=== PATIENT | female | born 1975 | race Caucasian/White ===

== ENCOUNTER 2022-04-28 11:26 | Emergency (ER) | payer BC, SELFPAY ==
--- NOTE | ~2022-04-28 | XR_ITS ---
EXAMINATION: XR chest 2V DATE: 04/28/2022 13:29 INDICATION: Cough and shortness of breath TECHNIQUE: PA and lateral views of the chest are obtained. COMPARISON: None available FINDINGS: The lungs are free of acute opacities. No pleural effusion or pneumothorax. The cardiomedia stinal silhouette is normal. The visualized bones and soft tissues are unremarkable. Bilateral breast implants are noted. IMPRESSION: 1. No acute cardiopulmonary abnormality. Reviewed, dictated and finalized at location B. [employer]
[2022-04-28 11:46] VITALS: BP 135/87; PULSE 68; RESP 18; TEMP 37.2; O2SAT 98
[2022-04-28 12:32] LABS: Influenza A QL RT-PCR Positive (Negative); Influenza B QL RT-PCR Negative (Negative); SARS-CoV-2 RNA PCR Negative
--- NOTE | 2022-04-28 12:46 | ED.URI ---
HPI - URI/Sore Throat General Chief Complaint: Upper Respiratory Infection Stated Complaint: URI Time Seen by Provider: 04/28/22 12:26 History of Present Illness HPI Narrative: Patient is a 46-year-old female with a history of lupus presenting with upper respiratory infection symptoms. Patient states for the last 5 days she has had muscle aches, generalized weakness, cough. States that her granddaughter recently tested positive for influenza A. States that she is concerned that she has pneumonia. Denies fevers, headache, numbness or weakness, chest pain, abdominal pain, vomiting, diarrhea, leg swelling. Reports decreased appetite but states that she is able to keep things down. Related Data Home Medications Medication Instructions Recorded Confirmed Imuran 04/28/22 hydroxychloroquine 200 mg tablet mg PO 04/28/22 Allergies Allergy/AdvReac Type Severity Reaction Status Date / Time No Known Allergies Allergy Unverified 04/28/22 11:49 Review of Systems Review of Systems: All systems reviewed & are unremarkable except as noted in HPI and below Exam Narrative: GENERAL: Appears uncomfortable but is nontoxic and in no acute distress HEAD: Normocephalic, atraumatic. EYES: PERRLA and EOMI. ENT: + Nasal congestion. Mucous membranes moist. NECK: Supple. CHEST: Clear to auscultation. No respiratory distress. HEART: Regular rate and rhythm. No murmur heard. Normal peripheral pulses. ABDOMEN: Soft, nontender, nondistended, normal active bowel sounds. EXTREMITIES: Normal range of motion. No edema. SKIN: Warm, dry, no rash. NEURO: No focal deficits. Alert and oriented x3. PSYCH: Normal mood and affect. Course Vital Signs Vital signs: Vital Signs Temperature 98.9 F 04/28/22 11:46 Pulse Rate 68 04/28/22 11:46 Respiratory Rate 18 04/28/22 11:46 Blood Pressure 135/87 04/28/22 11:46 Pulse Oximetry 98 04/28/22 11:46 Temperature 98.9 F 04/28/22 11:46 Pulse Rate 68 04/28/22 11:46 Respiratory Rate 18 04/28/22 11:46 Blood Pressure 135/87 04/28/22 11:46 Pulse Oximetry 98 04/28/22 11:46 Oxygen Delivery Room Air 04/28/22 12:08 MDM - URI/Sore Throat MDM Narrative Medical decision making narrative: Patient is a 46-year-old female presenting with URI symptoms. Vitals within normal limits. Exam remarkable for the above. Patient is positive for influenza A. Chest x-ray shows no acute abnormalities. Discussed appropriate supportive care with the patient. Will prescribe Tessalon Perles. Advised PCP follow-up. Appropriate return precautions given. Patient discharged in stable condition. Lab Data Labs: Lab Results 04/28/22 Range/Units 11:51 Influenza A (RT-PCR) Positive (Negative) Influenza B (RT-PCR) Negative (Negative) SARS-CoV-2 RNA (RT-PCR) Negative Critical Care Time Critical Care Time Critical Care Time: No Discharge Plan Discharge Clinical Impression: Influenza Patient Disposition: Home, Self-Care Condition: Stable Instructions: Antibiotic Form, Influenza (ED) Additional Instructions: Please use Tylenol and ibuprofen for symptomatic control. You may use the prescribed medication for cough. Please follow-up with your primary care provider. If you develop chest pain, shortness of breath, lightheadedness, or other concerning symptoms arise, please return to the ER. Prescriptions: New benzonatate 100 mg capsule 100 mg PO TID PRN (Reason: cough) Qty: 30 0RF No Action hydroxychloroquine 200 mg tablet PO Imuran Follow-up/Referrals: London Justin MD [Primary Care Provider] -
[2022-04-28] MEDS: ACETAMINOPHEN 500 MG TABLET 1000 MG PO (13:46)
[2022-04-28] MEDS: IBUPROFEN 400 MG TABLET 800 MG PO (13:46)
== END 2022-04-28 14:21 | disposition home or self-care (01) ==
PROVIDERS: Physician Assistant; Emergency Provider Emergency Medicine; PCP Family Medicine
DX: J10.1 Influenza due to other identified influenza virus with other respiratory manifestations (principal); Z20.822 Contact with and (suspected) exposure to COVID-19
CPT/HCPCS: 71046; 87636; 99283; A9270